=== PATIENT | female | born 1970 | race Caucasian/White ===

== ENCOUNTER 2016-07-15 14:23 | Emergency (ER) ==
--- NOTE | 2016-07-15 14:52 | PROVIDER DOCUMENTATION ---
HPI-Abdominal Pain/GI Problem - General Chief Complaint: Nausea/Vomiting Stated Complaint: N/V Time Seen by Provider: 07/15/16 14:45 Source: patient Allergies/Adverse Reactions: Patient Allergies Allergy/AdvReac Type Severity Reaction Status Date / Time codeine AdvReac HIVES Verified 07/15/16 14:32 metoclopramide HCl * AdvReac HIVES Verified 07/15/16 14:32 [From Reglan] Penicillins AdvReac HIVES Verified 07/15/16 14:31 Home Medications: Home Medication List Medication Instructions Recorded Confirmed Last Taken Type Escitalopram Oxalate [Lexapro] 10 mg PO DAILY 07/15/16 07/15/16 Unknown History Estradiol 1 mg PO DAILY 07/15/16 07/15/16 Unknown History Promethazine [Phenergan] 25 mg PO Q6H PRN PRN #20 tablet 07/15/16 Unknown Rx - History of Present Illness-ABD Nature of Presenting Problems: PATIENT REPORTS ONSET OF LAST NIGHT. HAD TEMP OF 100.0 AT WORK TODAY AND WAS SENT HOME. REPORTS SHE NOW FEELS VERY FATIGUED AND HAS GENERALIZED BODY ACHES. HAD MULTIPLE EPISODES OF DIARRHEA ON THURSDAY/THURSDAY. DENIES ABD PAIN. Abdominal Pain Onset Location: denies: RUQ, LUQ, RLQ, LLQ, epigastric, periumbilical, suprapubic, generalized abdomen, flank, unknown, other Quality of Pain: reports: none Severity in ED: reports: moderate Onset/Duration: reports: last night Timing: reports: still present Activities at Onset: reports: none Modifying Factors: improves with: nothing Associated Symptoms: reports: fatigue, fever/chills, vomiting Last BM: 2 days ago Dark Stools Present?: reports: none noticed Rectal Bleeding: reports: none Emesis Description: reports: other. denies: red blood, coffee grounds, blood- streaked, clear Review of Systems - Adult - REVIEW OF SYSTEMS - ADULT Constitutional: reports: see HPI Eyes: reports: no symptoms reported Ears, Nose, Mouth & Throat: reports: no symptoms reported Cardiovascular: reports: no symptoms reported Respiratory: reports: no symptoms reported Gastrointestinal: reports: see HPI Genitourinary: reports: no symptoms reported Musculoskeletal: reports: see HPI Integumentary: reports: no symptoms reported Neurological: reports: no symptoms reported Psychiatric: reports: no symptoms reported Endocrine: reports: no symptoms reported Hematologic/Lymphatic: reports: no symptoms reported Allergic/Immunologic: reports: no symptoms reported Past History - Adult - PAST MEDICAL HISTORY-ADULT Review of Records: reports: Nursing Assessment Review, Medications Reviewed, Social history reviewed & non-contributory. Physical Exam-General - PHYSICAL EXAM-ADULT Initial Vital Signs Reviewed: Yes - CONSTITUTIONAL General Appearance: alert, no apparent distress, other (TIRED APPEARING) - EYES Eyes: PERRL/EOMI - HEAD, EARS, NOSE, MOUTH & THROAT HENMT: normocephalic/atraumatic - NECK Neck: non-tender, full range of motion - RESPIRATORY Respiratory: lungs clear - CARDIOVASCULAR Cardiovascular: regular rate, rhythm - GASTROINTESTINAL (ABDOMEN) Abdominal Exam: normal bowel sounds, non tender, soft - GENITOURINARY Female Genitalia/Pelvic Exam: deferred Rectal Exam: deferred - LYMPHATIC Lymphatic: no adenopathy - MUSCULOSKELETAL Extremity: normal range of motion, normal gait - SKIN Integumentary: normal color, normal turgor, warm/dry - NEUROLOGIC Neurologic: grossly normal - PSYCHIATRIC Psych/Mental Status: normal mood/affect, normal thought content, normal thought process, oriented x 3 Progress - PLAN OF CARE/RESULTS Progress/Plan/Lab Results: Orders Category Date Time Status Saline Loc DIRECTED Care 07/15/16 14:55 Active CBC WITH DIFF [HEME] Stat Lab 07/15/16 15:29 Results CMP [COMPREHENSIVE METABOLIC PANEL] [CHEM] Stat Lab 07/15/16 15:29 Received Flu [INFLUENZA SCREEN PL] Stat Lab 07/15/16 15:[address] W/POSS RFLX CULT [URINALYSIS] Stat Lab 07/15/16 14:30 Completed 0.9% Sodium Chloride Inj [Ns] 1,000 ml Med 07/15/16 14:57 Discontinued IV 999 mls/hr Ketorolac [Toradol] Med 07/15/16 15:22 Discontinued 30 mg .ROUTE .STK-MED ONE Ondansetron [Zofran] Med 07/15/16 16:07 Discontinued 4 mg .ROUTE .STK-MED ONE Ondansetron [Zofran] Med 07/15/16 14:57 Discontinued 4 mg IV NOW ONE Laboratory Tests 07/15/16 07/15/16 07/15/16 14:30 15:10 15:29 WBC RBC Hgb Hct MCV MCH MCHC RDW Std Deviation Plt Count MPV Immature Gran % (Auto) Neut % (Auto) Lymph % (Auto) [place] % (Auto) Eos % (Auto) Baso % (Auto) Immature Gran # (Auto) Neut # (Auto) Lymph # (Auto) [place] # (Auto) Eos # (Auto) Baso # (Auto) Sodium 136 Potassium 3.7 Chloride 102 Carbon Dioxide 25 Anion Gap 9 BUN 14 Creatinine 0.8 Estimated GFR/1.73 m2 > 60 BUN/Creatinine Ratio 18 Glucose 109 H Calculated Osmolality 273 Calcium 8.6 L Total Bilirubin 0.70 AST 58 H ALT 62 H Alkaline Phosphatase 68 Total Protein 6.2 L Albumin 3.9 Globulin 2.0 Albumin/Globulin Ratio 2.0 Urine Source CLEAN CATCH Urine Color YELLOW Urine Clarity CLEAR Urine pH 8.0 Ur Specific [place] 1.005 Urine Protein NEGATIVE Urine Ketones NEGATIVE Urine Blood 2+ A Urine Nitrite NEGATIVE Urine Bilirubin NEGATIVE Urine Urobilinogen NORMAL Urine Microscopic RBC 10-20 A Urine WBC TRACE A Urine Microscopic WBC <10 Ur Epithelial Cells <10 Urine Glucose NEGATIVE Influenza A (Rapid) NEGATIVE Influenza B (Rapid) NEGATIVE 07/15/16 15:29 WBC 8.83 RBC 3.97 L Hgb 12.8 Hct 36.0 L MCV 90.7 MCH 32.2 H MCHC 35.6 RDW Std Deviation 11.7 Plt Count 226 MPV 10.8 H Immature Gran % (Auto) 0.1 Neut % (Auto) 88.5 H Lymph % (Auto) 5.3 L [place] % (Auto) 5.9 Eos % (Auto) 0.1 Baso % (Auto) 0.1 Immature Gran # (Auto) 0.01 Neut # (Auto) 7.81 H Lymph # (Auto) 0.47 L [place] # (Auto) 0.52 Eos # (Auto) 0.01 Baso # (Auto) 0.01 Sodium Potassium Chloride Carbon Dioxide Anion Gap BUN Creatinine Estimated GFR/1.73 m2 BUN/Creatinine Ratio Glucose Calculated Osmolality Calcium Total Bilirubin AST ALT Alkaline Phosphatase Total Protein Albumin Globulin Albumin/Globulin Ratio Urine Source Urine Color Urine Clarity Urine pH Ur Specific [place] Urine Protein Urine Ketones Urine Blood Urine Nitrite Urine Bilirubin Urine Urobilinogen Urine Microscopic RBC Urine WBC Urine Microscopic WBC Ur Epithelial Cells Urine Glucose Influenza A (Rapid) Influenza B (Rapid) Vital Signs - 24 hr 07/15/16 14:27 Temperature 98 F Pulse Rate 106 H Respiratory 18 Rate Blood Pressure 118/73 O2 Sat by Pulse 100 Oximetry 1649--PATIENT REPORTS "FEELING BETTER OVERALL, BUT NAUSEA IS STARTING TO RETURN. VOICES UNDERSTANDING OF PHENERGAN BEFORE DISCHARGE. PATIENT VOICES UNDERSTANDING OF NEED FOR FOLLOW UP FOR URINE RECHECK DUE TO HEMATURIA AND LIVER ENZYME RECHECK. PATIENT CONTINUES TO DENY ANY ABD PAIN. Departure - Departure Time of Disposition Order: 16:49 DIAGNOSIS: Hematuria Nausea & vomiting Qualifiers: Vomiting type: unspecified Disposition: HOME 01 Certified Medical Emergency: Emergent Condition: Good Additional Instructions: CLEAR LIQUID DIET FOR NEXT 12-24 HOURS, THEN ADVANCE DIET TOLERATED. Prescriptions: Promethazine [Phenergan] 25 mg PO Q6H PRN PRN #20 tablet PRN Reason: Nausea Referrals: None,PCP [Primary Care Provider] - Jose Rafael Pozo MD [STAFF PHYSICIAN] - Call for Appoint. -1 week (FOLLOW UP WITH DR. POZO OR OTHER PROVIDER OF YOUR CHOICE NEXT WEEK FOR RECHECK OF LIVER ENZYMES AND URINE. ) Forms: Return to School/Parent Work Attestation - Physician/ LUCIO Attestation Patient care was provided by Advanced Practice Provider:: Yes Advanced Practice Provider:: [address] Advanced Practice Provider documentation review:: The Mid-level provider documentation, treatment plan and medical decision making was reviewed by the physician who agrees with all treatment and medical decision making by the MLP.
[2016-07-15] MEDS ORDERED: ZOFRAN IV ONE ×2 (14:57→16:14)
[2016-07-15] MEDS ORDERED: NS 1,000 ML IV ONE (14:57)
[2016-07-15 15:05] LABS: URINE CULTURE PL NEEDED? NO; URINE SOURCE CLEAN CATCH
[2016-07-15] MEDS ORDERED: TORADOL ONE (15:22)
[2016-07-15 15:37] LABS: BILIRUBIN URINE NEGATIVE (NEGATIVE); BLOOD URINE 2+ (NEGATIVE); CLARITY CLEAR (CLEAR); COLOR YELLOW; GLUCOSE URINE NEGATIVE (NEGATIVE); LEUKOCYTES URINE TRACE (NEGATIVE); NITRITE URINE NEGATIVE (NEGATIVE); PROTEIN URINE NEGATIVE (NEGATIVE); SP GRAVITY URINE 1.005; UROBILINOGEN URINE NORMAL
[2016-07-15 15:42] LABS: URINE EPITHELIAL CELLS <10 /HPF (<10); URINE WBC <10 /HPF (<10)
[2016-07-15 15:48] LABS: MANUAL DIFF NEEDED? NO
[2016-07-15] MEDS ORDERED: ZOFRAN ONE (16:07)
[2016-07-15 16:08] LABS: BASO% 0.1 % (0.0-0.8); EOS# 0.01 X1000 (0.0-0.7); EOS% 0.1 % (0.0-10.0); HEMOGLOBIN 12.8 g/dL (12.0-16.0); IMM GRAN# 0.01 X1000 (0.0-0.04); IMM GRAN% 0.1 % (0.0-0.5); LYMPH# 0.47 X1000 (1.2-3.4); LYMPH% 5.3 % (20.5-51.1); MCH 32.2 PG (27-31); MCHC 35.6 g/dL (33-37); MCV 90.7 FL (81-99); MONO# 0.52 X1000 (0.11-0.59); MONO% 5.9 % (1.7-9.3); MPV 10.8 FL (7.4-10.4); NEUT% 88.5 % (42.2-75.2); PLT 226 X1000 (130-400); RBC 3.97 XMIL (4.2-5.4)
[2016-07-15 16:15] LABS: AGAP 9; ALBUMIN 3.9 g/dL (3.5-5.0); ALKALINE PHOSPHATASE 68 U/L (32-104); BUN 14 mg/dL (8-22); CALCIUM 8.6 mg/dL (8.8-10.2); CHLORIDE 102 mmol/L (98-107); COSMO 273; GOT 58 U/L (10-30); GPT 62 U/L (10-36); POTASSIUM 3.7 mmol/L (3.5-5.1); SODIUM 136 mmol/L (136-145); TCO2 25 mmol/L (25-35); TOTAL PROTEIN 6.2 g/dL (6.3-8.3)
[2016-07-15] MEDS ORDERED: PHENERGAN IM ONE (16:46)
[2016-07-15 17:20] VITALS: BP 87/51
== END 2016-07-15 17:20 | disposition home or self-care (01) ==
LOC: P.ED 14:23
DX: R31.9 Hematuria, unspecified (principal); R11.2 Nausea with vomiting, unspecified; R50.9 Fever, unspecified; R53.83 Other fatigue; R19.7 Diarrhea, unspecified; R52 Pain, unspecified; Z79.899 Other long term (current) drug therapy
CPT/HCPCS: 36415; 80053; 81001; 85025; 87804; J1885; J2405; J2550; J7030